=== PATIENT | male | born 1970 | race Caucasian/White ===

== ENCOUNTER 2023-12-14 14:03 | Inpatient (IN) | payer BC, SELFPAY ==
[2023-12-14] VITALS (15 sets, daily range): BP systolic 129–183; BP diastolic 75–110; BMI 32.2; BMI 32.4
--- NOTE | 2023-12-14 09:04 | ED.GENMED ---
History of Present Illness
General
Chief Complaint: Numbness
Source: patient
Exam Limitations: none
Time Seen by Provider: 12/14/23 08:56
Nursing documentation reviewed up to this point in time: agreed with
Travel History
Have you had any contact with someone who has COVID-19?: No
Do you have any symptoms of coronavirus? Fever > 100 degrees, chills, cough, shortness of breath, sore throat, loss of taste or smell, muscle aches, or headache?: No
History of Present Illness
History of Present Illness:
Patient is a 53-year-old male with past medical history of hypertension high cholesterol presents to the ER for numbness. Patient has had numbness from his left shoulder down to his left middle fourth and fifth fingers for the past 4 days however
this morning woke up with numbness to his entire left side of his body left face left arm all of his left hand and left leg. He has no associated headache no associated weakness. He did take 2 regular strength aspirin prior to arrival. He was
initially seen by his family doctor for the numbness several days ago and it was only localized to his arm and left 3 fingers.
Review of Systems
Review of Systems
Allergies reviewed?: Yes
All Other Systems: ROS reviewed and negative except as documented in HPI and ROS
Constitutional: Reports no symptoms; Denies fever
EENT: Reports no symptoms
Respiratory: Reports no symptoms
Cardiac: Reports no symptoms
ABD/GI: Reports no symptoms; Denies nausea or vomiting
: Reports no symptoms
Musculoskeletal: Reports no symptoms
Skin: Reports no symptoms
Neurological: Reports numbness (numbness left side of body ); Denies headache
Psychiatric: Reports no symptoms
Phy Exam
General Physical Exam
General Presentation: no apparent distress
General age: appears stated age
General Skin: warm and dry
General Habitus: normal
General Mental: alert
General Hydration: appears well hydrated
Eye Exam
Eye Exam: PERRL and EOMI
Eye Exam General: PERRL: bilateral and EOM intact: bilateral
Pupil Exam: Bilateral: round and reactive
Cardiovascular Exam
Cardiovascular Exam: regular rate/rhythm, no murmur and normal peripheral pulses
Pulmonary Exam
Pulmonary Exam: lungs clear and no respiratory distress
Neurological Exam
Neurological Exam: alert, oriented x3, no motor deficits and other (Patient with decreased sensation to left face, arm/leg no deficit in strength )
Musculoskeletal Exam
Musculoskeletal Exam: full ROM
Skin Exam
Skin Exam: normal color and warm/dry
Psychiatric Exam
Psychiatric Exam: normal mood/affect
Scores
NIH Stroke Score
Level of Consciousness: 0 - Alert
LOC Questions: 0-Answers both correctly
LOC Commands: 0-Performs both correctly
Best Horizontal Gaze: 0-Normal
Visual Diana: 0=Normal, no visual loss
Facial Palsy: 0=Normal, symmetrical
Motor - Right Arm: 0=No drift 10 seconds
Motor - Left Arm: 0=No drift 10 seconds
Motor - Right Le-No drift 5 seconds
Motor - Left Le-No drift 5 seconds
Limb Ataxia: 0-Absent
Sensation: 1-Mild loss
Best Language: 0-No aphasia
Dysarthria: 0-Normal
Extinction and Inattention: 0-No abnormality
Total Score:: 1
Course
Orders/Labs/Results
Orders:
Orders
12/14/23 09:01
Electrocardiogram (*1) Urgent
Reason for Study: Vertigo / Dizzy
CT Head W/o Iv Contrast Urgent
Comment:
Reason For Exam: numbness/tingling
EKG- Treatment ONCE
12/14/23 09:37
Clopidogrel Bisulfate [Plavix] 300 mg PO NOW STA
12/14/23 09:45
Complete Blood Count/With Diff Urgent
Comprehensive Metabolic Panel Urgent
Glycohemoglobin (HgbA1c) Urgent
Troponin I Urgent
12/14/23 09:55
Neurological Checks As Directed
Frequency: Per unit guidelines
12/14/23 09:56
MA [place] Routine
Comment:
Reason For Exam: intracranial stenosis
Recent pill cam endoscopy?: No
MR Brain Without Contrast Routine
Comment:
Reason For Exam: L hemibody numbness, R BG/denis/thalamus stroke?
Recent pill cam endoscopy?: No
NIH Stroke Scale As Directed
Directions: Per protocol
Comment: Please until order to stop
12/14/23 10:00
Add On- LAB Urgent
Tests Added?: HbA1c
12/14/23 10:06
MA Neck With Contrast Routine
Reason For Exam: stenosis
Recent pill cam endoscopy?: No
12/14/23 18:00
Atorvastatin [Lipitor] 10 mg PO QPM
12/15/23 06:00
Cardiovascular Evaluation IN AM
12/15/23 08:00
Aspirin Low Dose EC [Aspir Low (Enteric Coated)] 81 mg PO DAILY
Clopidogrel Bisulfate [Plavix] 75 mg PO DAILY
12/16/23 10:01
Echo W Saline (bubble) Dop Routine
Reason for Study: thrombotic source for stroke like
Comment: Bubble study please-patient younger than 60 TIA/stroke
Abnormal Lab Results
12/14/23
09:45
Glucose 100 H mg/dl
(70-99)
ALT 79 H U/L
(0-50)
12/14/23 09:45
12/14/23 09:45
Vital Signs
Initial and Last Documented VS:
Initial Vital Signs
Temp Pulse Resp BP Pulse Ox
98.0 F 83 20 183/108 99
12/14/23 08:48 12/14/23 08:48 12/14/23 08:48 12/14/23 08:48 12/14/23 08:48
Last Documented Vital Signs
Temp Pulse Resp BP Pulse Ox
97.6 F 83 16 158/97 98
12/14/23 10:03 12/14/23 10:03 12/14/23 10:03 12/14/23 10:03 12/14/23 10:03
MDM/Problems Addressed
Differential Diagnosis Includes:
Not limited to paresthesias, CVA
MDM/Problems Addressed:
Patient is a 53-year-old male with history of hypertension high cholesterol who had intermittent numbness to his left arm for the past 4 days however woke up today with entire left-sided facial numbness. He denies any associate weakness headache.
On exam he does have subjective numbness to his left face arm and leg. He has no deficit in strength. He took 2 regular aspirin prior to arrival. CAT scan negative. Case discussed with neurology Dr. Matias as recommended patient was given plan.
Patient mated to hospital service. Patient is agreeable to stay however he expressed initially that he has a lot of anxiety about being hospitalized and initially did not want to stay. He is agreeable to admission I did review risks of discharge.
Chronic conditions affecting care:
htn high cholesterol
*Radiology
Radiology exam reviewed: radiology read reviewed
*Pulse Oximetry
Patient hypoxic: no
*EKG
Interpreted by ED Provider?: Yes
Interpretation: normal
Heart Rate: 89
Rate: normal
Rhythm: sinus
Ischemia: no ischemia
*Critical Care Note
Total Time (30-74mins, 75-104mins- exclusive of procedures): Not Applicable
Patient Management
Discussion with other providers: Registered Nurse [facility] (Neuro Dr Matias)
ED Attending Note
-
Portions of this chart may have been created with voice recognition software.� Occasional wrong word or��sound alike� substitutions may have occurred due to the inherent limitations of voice recognition software.
Discharge Plan
Departure
Patient Disposition: Admit
Date of Disposition: 12/14/23
Time of Disposition: 10:37
Admit to: Med/Surg
Admit to doctor: hospitalist
Presentation/result/management discussed w/ accepting MD/DO: Hospitalist
Patient with high blood pressure during this ER visit?: Yes
Condition: Fair
Covid-19: Not Applicable
Discharge Problem:
parethesias
Prescriptions:
No Action
atorvastatin 10 mg Tablet
10 mg PO DAILY
lisinopril 10 mg Tablet
10 mg PO DAILY
Referrals:
Manju Marie DO [Family Provider] -
Interventions
Interventions:
*Risk Screen - Suicide Last Done: 12/14/23 08:48
*General Assessment Last Done: 12/14/23 08:48
*Neglect/Abuse Screening Last Done: 12/14/23 08:48
ED- Fall Risk Assessment Last Done: 12/14/23 09:03
*ED COVID-19 Vaccine History Last Done: 12/14/23 09:03
ED- Neurological Assessment Last Done: 12/14/23 09:03
Discharge Date and Time
Print Language: MARSHALLESE
[2023-12-14] MEDS: PLAVIX 300 MG PO (09:51)
[2023-12-14 09:55] LABS: % Basophils 0.9 % (0-2); % Eosinophils 2.3 % (0-6); % Immature Granulocytes 0.4 % (0-0.5); % Lymphocytes 33.9 % (20.5-51.1); % Monocytes 8.4 % (1.7-9.3); % Neutrophils 54.1 % (42.2-75.2); Absolute Basophils 0.1 10^3/uL (0-0.2); Absolute Eosinophils 0.2 10^3/uL (0-0.7); Absolute Lymphocytes 2.3 10^3/uL (1.2-3.4); Absolute Monocytes 0.6 10^3/uL (0.1-0.6); Absolute Neutrophils 3.7 10^3/uL (1.4-6.5); Hematocrit 43.4 % (39.0-52.0); Hemoglobin 15.2 g/dL (13.0-18.0); Mean Corpuscular Hgb 30.6 pg (27.0-31.0); Mean Corpuscular Volume 87.3 fL (80.0-94.0); Mean Platelet Volume 9.6 fL (7.4-10.4); Nucleated Red Blood Cells % 0 % (-); Platelet Count 258 10^3/uL (130-400); Red Blood Cell Count 4.97 10^6/uL (4.70-6.10); Red Cell Dist. Width 12.5 % (11.5-14.5); White Blood Cell Count 6.8 10^3/uL (4.8-10.8)
--- NOTE | 2023-12-14 09:57 | CON.NEURO4 ---
Consultation - Neurology 4
-
CONSULTING PHYSICIAN: Alexys Matias
REFERRING PHYSICIAN: ED
DICTATED BY: Alexys Matias
DATE/TIME OF REQUEST: 12/14/23
DATE/TIME OF CONSULTATION: 12/14/23
Reason for Consultation: Left hemibody numbness concerning for potential new ischemic stroke or TIA
History of Present Illness:
Patient is a 53-year-old right-handed man with a past medical history of hypertension and hyperlipidemia presented to hospital because of left-sided face arm and leg paresthesia that started this morning. Around 4 days ago patient did notice some
paresthesias in the left hand and fingers that send improved spontaneously. No symptoms of radiating pain from the neck or shoulder recently and no recent head or neck trauma or known spinal issues of the neck. No unusual headaches. This morning
noticed a new symptom with left-sided facial paresthesia that seems to be improving mostly resolving, and had paresthesia of the left leg as well. He did not notice any weakness or incoordination vision change speech difficulty, or vertigo. He
took a couple of aspirin at home and presented here to the ED. Has never had symptoms like this before. Is compliant with medications with atorvastatin and lisinopril at home.
Past Medical History: Hypertension, hyperlipidemia, obesity
Surgical History: Right hip replacement, epidural steroid injections of lumbar and sacral spine
Family History: Father with VT around age 50, 2 grandparents maternal grandfather with heart disease one dying around age 60
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
Allergies: Sulfa
Review of Symptoms:
Patient denies any fever, headache, chest pain, shortness of breath, GI or symptoms.
Physical Exam:
Middle-age man well-appearing no signs of acute distress no signs of head or neck trauma eyes are clear oropharynx is clear neck supple full range of motion no neck masses heart rate regular with no murmur breathing is unlabored abdomen soft
nontender no lower extremity or joint deformity or rash
Neurologic Examination:
The patient is awake, alert and oriented x 3. He is able to follow commands and answer questions appropriately. There is no aphasia or dysarthria. On cranial nerve assessment, pupils are 3 mm bilateral, round and reactive to light and
accommodation. Visual smith are full. Extraocular movements are intact. There is no facial asymmetry. Hearing is intact bilaterally to normal conversation volume. Tongue palate and uvula are midline. Sternocleidomastoid strengths are full
bilaterally. Motor strengths are 5/5 bilateral upper and lower extremities on medical research [place] scale. There is no drift or involuntary movement noted. Mildly asymmetric sensory exam with difference in sensation on left arm, none on the face
or leg, no sensory neglect. Deep tendon reflexes are 2+ bilateral upper and lower extremities and Babinski is absent bilaterally. There was no extinction noted on double simultaneous stimulation. Coordination is intact by finger to nose
bilaterally.
Neuro Imaging: CT head non contrast unremarkable
Impressions
1. Suspect TIA or minor stroke presenting with left sided hemibody sensory symptoms given family history of risk factors for stroke/TIA. Less likely a cervical spine issue which only very rarely produces sensory symptoms to face.
2. Hypertension
3. Hyperlipidemia
4. Obesity
5. Family history of early CAD
Patient has the following risk factors for their symptoms: Hypertension, hyperlipidemia
IV Tenecteplase/IAT candidacy: Outside time window and no disabling symptoms not TNK candidate, no signs of LVO not an IAT candidate
Recommendations:
1. Aspirin already taken at home, give 300 mg Clopidogrel now. DAPT therapy duration will depend on MRA vessel imaging, likely will be 21 days then stop
2. Permissive hypertension goal less than 220/120 until tomorrow morning
3. NIH and neurologic checks
4. Cardiac telemetry and check TTE with bubble study (patient prefers to pursue TTE as outpatient)
5. MRI brain, MRA head and neck
6. Check lipid panel, HbA1c
7. Continue Atorvastatin 10 mg daily
8. PT/OT
Discussed patient care with: Patient, ED
--- NOTE | 2023-12-14 10:08 | EDRN ---
Janee Mcknight AUXILIARY EQUIPMENT TENDER currently at the pts bedside speaking to the pt about being admitted, the pt states that he has anxiety about being admitted to the hospital, provider at the pts bedside reassuring the pt along with this RN
[2023-12-14 10:22] LABS: ALT (SGPT) 79 U/L (0-50); AST (SGOT) 40 U/L (17-59); Albumin 4.9 g/dl (3.5-5.0); Alkaline Phosphatase 62 U/L (38-126); Blood Urea Nitrogen 18 mg/dl (9-20); Calcium 10.2 mg/dl (8.4-10.2); Carbon Dioxide 25 mmol/L (22-30); Chloride 105 mmol/L (98-107); Estimated Creatinine Clearance > 125 ml/min; Glucose 100 mg/dl (70-99); Potassium 4.6 mmol/L (3.5-5.1); Sodium 137 mmol/L (135-145); Total Bilirubin 0.5 mg/dl (0.2-1.3); Total Protein 7.5 g/dl (6.3-8.2); eGFR > 60.00
[2023-12-14 10:33] LABS: Troponin I 0.033 ng/ml
--- NOTE | 2023-12-14 10:35 | EDRN ---
Troponin came back elevated, this RN notified the provider Janee Mcknight NP
--- NOTE | 2023-12-14 10:53 | EDRN ---
the pt pressed the all riley and this RN entered the pts room, the pt stated that he needed to use the bathroom, this RN unhooked the pt from the monitor and the pt was able to ambulate to the bathroom and back to the stretcher with no issues, the pt
is resting in stretcher in the lowest position, side rails up x2, call riley within reach, HOB elevated, VS WNL, will continue to monitor the pt closely
--- NOTE | 2023-12-14 12:11 | EDRN ---
awaiting for provider to see the pt, the pt is resting in stretcher in the lowest position, side rails up x2, call riley within reach, HOB elevated, VS WNL, NSR in the 70's, no c/o chest pain, no c/o SOB, RA Sp02 96%, last BP 126/85 (98), will
continue to monitor the pt closely
[2023-12-14 12:39] LABS: Glycohemoglobin (HgbA1c) 5.4 % (4.0-5.6)
--- NOTE | 2023-12-14 12:45 | EDRN ---
pt taken to MRI
--- NOTE | 2023-12-14 14:19 | HPS.HSE ---
Family Physician
-
Family Physician: Manju Marie DO
Chief Complaint
-
Left sided numbness
History of Present Illness
53-year-old male with past medical history of hyperlipidemia, hypertension now presenting for left-sided face, arm, leg paresthesia/numbness. Symptoms began this morning and subsequently took a 2 regular strength aspirin tablets,, although had
similar mild symptoms 4 days ago that improved spontaneously. No evidence of motor deficits. No neck, head, back, shoulder issues. Denies headaches. Upon evaluation, symptoms slowly improving. Blood pressure 146/90, pulse 77, respirate 16,
afebrile. Labs grossly unremarkable.
Medical History
Past Medical History
Past Medical History: Reports Other
Additional Past Medical History:
Hypertension, hyperlipidemia, obesity
Past Surgical History: Reports Other
Additional Past Surgical History:
Right hip replacement, epidural steroid injections of lumbar and sacral spine
Social History
Tobacco: Non-smoker
Alcohol: Occasional (every other day, 1 drink)
Drug: Marijuana (has not used in 6-8 months)
Personal:
Living: With Family
Employment: Employed
Family History
Family History: Other (Father with [place] around age 50, 2 grandparents maternal grandfather with heart disease one dying around age 60)
Allergies / Home Medications
Allergies reflects when Allergies were last updated in [email or web address].
Home Medications with original date entered in [email or web address]
Allergy/Medication List:
Allergies
Allergy/AdvReac Type Severity Reaction Status Date / Time
Sulfa (Sulfonamide Allergy Rash Verified 12/14/23 08:52
Antibiotics)
Home Medications
atorvastatin 10 mg tablet 10 mg PO DAILY 12/14/23
lisinopril 10 mg tablet 10 mg PO DAILY 12/14/23
Review of Systems
-
History Source: Patient
A 12 point ROS was completed and negative except as noted: Yes
Physical Exam
Vital Signs
Vital Signs
Temp Pulse Resp BP Pulse Ox
97.5 F 77 16 146/90 98
12/14/23 12:00 12/14/23 12:30 12/14/23 12:30 12/14/23 12:09 12/14/23 12:30
Physical Exam
General: Well Developed, Well Nourished and No Apparent Distress
HEENT: NormoCephalic
Respiratory: Clear
Cardiac: S1/S2 and Regular Rhythm
GI: Non Tender
Musculoskeletal: No Clubbing
Skin: Warm and Dry
Neuro: Awake, Alert, Oriented and AO x 3
Hematologic/Lymphatic: No Lymphadenopathy
Laboratory Results
-
12/14/23 09:45
12/14/23 09:45
Laboratory Results
Total Bilirubin 0.5 mg/dl (0.2-1.3) 12/14/23 09:45
AST 40 U/L (17-59) 12/14/23 09:45
ALT 79 U/L (0-50) H 12/14/23 09:45
Alkaline Phosphatase 62 U/L (38-126) 12/14/23 09:45
Troponin I 0.033 ng/ml 12/14/23 09:45
Data Reviewed
-
CT Scan: Image Personally Visualized and interpreted and Report Reviewed by me
Lab Data: Labs Reviewed by me
Impression/Plan
-
IMPRESSION:
53-year-old male with past medical history of hyperlipidemia, hypertension now presenting for left-sided face, arm, leg paresthesia/numbness, admitted due to concern for CVA.
PLAN:
#Suspect TIA versus CVA
� Out of tPA window
� Continue aspirin 81 mg
� Continue Plavix, likely for 21 days then stop
� Permissive hypertension, BP goal less than 220/120
� Continue NIH, neurology checks
� IV fluids
� Continue telemetry
� TTE with bubble study although patient prefers to pursue TTE as outpatient
� Follow-up MRI brain, MRA head and neck
� Follow lipid panel, hemoglobin A1c
� Continue statin
� PT/OT
#Hypertension
� Permissive hypertension
#Hyperlipidemia
� Continue statin
#DVT prophylaxis
� HSQ
--- NOTE | 2023-12-14 14:32 | EDRN ---
hospitalist currently at the pts bedside speaking with the pt
--- NOTE | 2023-12-14 15:56 | EDRN ---
this RN called the receiving unit and notified them that paper report was going to be tubed up
[2023-12-14] MEDS: LR 1000 IV (17:05)
[2023-12-14] MEDS: LIPITOR 10 MG PO (17:05)
[2023-12-14] MEDS: HEPARIN 5000 UNITS SC (17:06)
[2023-12-14] MEDS: DESYREL 12.5 MG PO (21:35)
[2023-12-14 21:53] LABS: Urine Albumin Negative (Neg - Trace); Urine Bilirubin Negative (Negative); Urine Character Clear (Clear); Urine Glucose Negative (Negative); Urine Ketone Negative (Negative); Urine Leukocyte Negative (Negative); Urine Nitrite Negative (Negative); Urine Occult Blood Trace (Negative); Urine Specific Gravity 1.015 (<1.030); Urine Urobilinogen Negative (Neg - 1+)
[2023-12-14 21:57] LABS: Urine Color Straw
[2023-12-14 21:59] LABS: Urine Squamous Cell 0-2 /LPF (Few)
[2023-12-14 22:00] LABS: Urine Red Blood Cell 0-2 /HPF (0-2); Urine White Cell 0-2 /HPF (0-5)
[2023-12-15] MEDS: HEPARIN 5000 UNITS SC ×2 (00:13→09:06)
[2023-12-15 03:10] VITALS: BP 134/77
[2023-12-15 07:08] LABS: ALT (SGPT) 75 U/L (0-50); AST (SGOT) 38 U/L (17-59); Albumin 4.4 g/dl (3.5-5.0); Alkaline Phosphatase 61 U/L (38-126); Blood Urea Nitrogen 14 mg/dl (9-20); Calcium 9.8 mg/dl (8.4-10.2); Carbon Dioxide 27 mmol/L (22-30); Chloride 103 mmol/L (98-107); Estimated Creatinine Clearance > 125 ml/min; Glucose 99 mg/dl (70-99); HDL Cholesterol 51 mg/dl; LDL Cholesterol, Calculated 73 mg/dl; Potassium 4.2 mmol/L (3.5-5.1); Sodium 135 mmol/L (135-145); Total Bilirubin 0.8 mg/dl (0.2-1.3); Total Cholesterol 205 mg/dl (50-199); Total Protein 7.1 g/dl (6.3-8.2); Triglyceride 409 mg/dl (10-149); Very Low Density Lipoprotein 81 mg/dl (0-30); eGFR > 60.00
[2023-12-15 07:11] LABS: Hematocrit 42.4 % (39.0-52.0); Hemoglobin 14.5 g/dL (13.0-18.0); Mean Corp Hgb Conc. 34.2 g/dL (33.0-37.0); Mean Corpuscular Hgb 30.7 pg (27.0-31.0); Mean Corpuscular Volume 89.8 fL (80.0-94.0); Mean Platelet Volume 9.6 fL (7.4-10.4); Platelet Count 265 10^3/uL (130-400); Red Blood Cell Count 4.72 10^6/uL (4.70-6.10); Red Cell Dist. Width 12.3 % (11.5-14.5); White Blood Cell Count 6.4 10^3/uL (4.8-10.8)
[2023-12-15 07:34] LABS: TSH 0.99 uIU/ml (0.47-4.68)
[2023-12-15 07:37] LABS: LDL Cholesterol, Direct 114 mg/dl
--- NOTE | 2023-12-15 08:35 | W.PN.NEURO.1 ---
Today's Communication / Plan
-
-Patient reports he thinks is on Atorvastatin 80 mg daily at home, would keep on this dose then
-Aspirin 81 mg daily for life
-DAPT plavix 21 days then off
-Acceptable for TTE with bubble study as outpatient
-Discussed secondary prevention, diet, exercise
-Neurology follow up 4-6 weeks outpatient, okay to see [employer]
-Goal normotension
-No barriers to discharge from my standpoint
Neuro Assessment/Plan
Assessment
53 year old man with history of hyperlipidemia, hypertension, obesity, family history of early CAD presenting to hospital with at first left hand paresthesia a few days ago, yesterday morning noted new symptoms of left face, left hand and leg
paresthesia concerning for sensory stroke or TIA
No head or neck trauma recently, no history C spine issues
MRI brain MRA head and neck showing no significant cerivcal or intracranial stenosis, no acute or chronic infarcts seen or signs of chronic demyelination
TIA is felt the most likely diagnosis given risk factors, unilateral face/arm/leg paresthesia, no infarct seen on brain MRI. Very rare for cervical spine issues to produce such symptoms and patient has no signs or symptoms suggestive of cervical
myelopathy. Migraine aura without headache would be in differential diagnosis but no history of migraine headaches.
MRI brain shows no signs of demyelination so unlikely multiple sclerosis
Subjective/Objective
Subjective Data
Date of Service: December 15, 2023
No acute events, small amount of left facial paresthesia mostly resolved, no arm or leg paresthesias
Objective Data
Vital Signs
Temp Pulse Resp BP Pulse Ox
97.4 F 72 18 134/77 96
12/15/23 03:10 12/15/23 03:10 12/15/23 03:10 12/15/23 03:10 12/15/23 03:10
Lab Results
12/15/23 06:29
12/15/23 06:29
Sodium 135 mmol/L (135-145) 12/15/23 06:29
Potassium 4.2 mmol/L (3.5-5.1) 12/15/23 06:29
BUN 14 mg/dl (9-20) 12/15/23 06:29
Glucose 99 mg/dl (70-99) 12/15/23 06:29
Calcium 9.8 mg/dl (8.4-10.2) 12/15/23 06:29
LDL Cholesterol Direct 114 mg/dl 12/15/23 06:29
LDL Cholesterol, Calc 73 mg/dl 12/15/23 06:29
Patient Allergies
Sulfa (Sulfonamide Antibiotics) Allergy (Verified 12/14/23 08:52)
Rash
LDL Level: >70, statin ordered
Review of Systems
-
History Source: Patient
All other systems: Reviewed and negative
Constitutional: No Symptoms
EENT: No Symptoms Reported
Respiratory: No Symptoms
Cardiac: No Symptoms
Abdomen/GI: No Symptoms
Genitourinary: No Symptoms
Musculoskeletal: No Symptoms
Skin: No Symptoms
Neuro: Numbness
Endocrine: No Symptoms
Hematologic / Lymphatic: No Symptoms
Allergy / Immunology: No Symptoms
Physical Exam
-
General: Comfortable
Eyes: No Ptosis
HEENT: Normocephalic
Neck: No Bruits Bilaterally
Respiratory: Clear to Auscultation
Cardiac: Regular Rhythm
GI: Normal Bowel Sounds
Skin: Unremarkable
Extremities: No Clubbing
Psych: Unremarkable
Extended Neurological Exam
Mood & Affect: Mood Unremarkable and Affect Unremarkable
Attention Span & Concentration: Awake, Alert and Interactive
Memory: Unremarkable
Tremor: Hand Tremor Absent
Involuntary Movement: None
Speech: Quality Unremarkable and Quantity Unremarkable; Negative Expressive Aphasia or Receptive Aphasia
Cranial Nerve II: Left Eye: Pupillary Reactivity Unremarkable, Pupillary Size Unremarkable and Visual Diana Intact
Cranial Nerve II: Right Eye: Pupillary Reactivity Unremarkable, Pupillary Size Unremarkable and Visual Diana Intact
Cranial Nerves III, IV, : Extraocular Movement: Extraocular Movement Full in all Directions
Cranial Nerve VII: Facial Symmetry: Normal Facial Symmetry
Muscle Strength, Overall: Full Throughout
Pronator Drift: No Drift in Upper Extremities
Deep Tendon Reflexes: Trace Throughout
Touch Sensation: Unremarkable
Babinski Sign: Absent Bilaterally
Data Reviewed
-
CT Head: Report Reviewed and Image Reviewed
MRI Head: Report Reviewed and Image Reviewed
MRA Head: Report Reviewed and Image Reviewed
MRA Neck: Report Reviewed and Image Reviewed
Labs: Report Reviewed
Lipid Profile: Report Reviewed
[2023-12-15 08:45] VITALS: BP 163/99
[2023-12-15] MEDS: PLAVIX 75 MG PO (09:06)
[2023-12-15] MEDS: ASPIR LOW (ENTERIC COATED) 81 MG PO (09:06)
[2023-12-15 09:40] VITALS: BP 163/99; PULSE 90
[2023-12-15 09:43] VITALS: BP 163/99; PULSE 90
--- NOTE | 2023-12-15 10:09 | W.PN.HOSP.TC ---
Addendum entered and electronically signed by Fernando Everett MD 12/15/23 14:57:
[id number]
Original Note:
Today's Communication/Plan
-
asa, plavix (for 21 days)
statin
diet modification
TTE with bubble as outpatient
neuro f/u 4-6 weeks
Assessment / Plan
Assessment / Plan
Physical Exam
General: Well Developed, Well Nourished and No Apparent Distress
HEENT: NormoCephalic
Respiratory: Clear
Cardiac: S1/S2 and Regular Rhythm
GI: Non Tender
Musculoskeletal: No Clubbing
Skin: Warm and Dry
Neuro: Awake, Alert, Oriented and AO x 3
Hematologic/Lymphatic: No Lymphadenopathy
53-year-old male with past medical history of hyperlipidemia, hypertension now presenting for left-sided face, arm, leg paresthesia/numbness, admitted due to concern for CVA.
PLAN:
#TIA
- MRI without any acute findings
- Statin - patient believes is on 80mg - can cont that then
- Aspirin 81 mg daily for life
- DAPT plavix 21 days then off
-desires TTE with bubble study as outpatient - neuro OK to this
-Discussed secondary prevention
-Neurology follow up 4-6 weeks outpatient
-Goal normotension
#Hypertension
� goal normotension
-resume ACEI
-f/u pcp outpatient
#Hyperlipidemia
� Continue statin
#DVT prophylaxis
� HSQ
More than 30 minutes spent in discharge including
Final examination of the patient
Summarizing hospital stay
Instructions for continuing care to all relevant caregivers
Preparation of discharge records, prescriptions, and referral forms
Total time spent (35 in minutes):
Anticipated Discharge: Today
Subjective/Interval History
-
Date of Service: December 15, 2023
no acute events
Objective Data
-
Labs:
Laboratory Results
12/15/23
06:29
WBC 6.4
Hgb 14.5
Hct 42.4
Plt Count 265
Sodium 135
Potassium 4.2
Chloride 103
Carbon Dioxide 27
BUN 14
Creatinine 0.7
Glucose 99
Calcium 9.8
Total Bilirubin 0.8
AST 38
ALT 75 H
Alkaline Phosphatase 61
Vital Signs:
Vital Signs
Temp Pulse Resp BP Pulse Ox
97.4 F 72 18 134/77 96
12/15/23 03:10 12/15/23 03:10 12/15/23 03:10 12/15/23 03:10 12/15/23 03:10
I&O
12/14/23 12/15/23 12/16/23
06:59 06:59 06:59
Intake Total 315 / 315
Balance 315 / 315
Review of Systems
-
History Source: Patient
All other systems: Not reviewed unless documented
Data Reviewed
-
CT Scan: Image personally visualized and interpreted and Report Reviewed by me
MRI: Image personally visualized and interpreted and Report Reviewed by me
Labs: Labs Reviewed by me
--- NOTE | 2023-12-15 10:15 | CM ---
Patient seen bedside.
IA completed.
Patient lives with spouse in 2 story home, 0 steps to enter.
patient independent prior to admission without AD.
patient works and drives.
patient has not had VN in the past.
patient denies home care needs.
PCP: Dr Marie
Pharmacy: [facility].
Plan: home no needs.
--- NOTE | 2023-12-15 10:15 | W.DS.TRANS ---
DC Summary - [employer]
-
Discharge Instructions:
Discharge Diagnosis/Procedures tia
Diet Low Cholesterol,Low Fat
Activity As tolerated
Instructions:
Stand-Alone Forms:
Changes to Home Medications: Yes
Discharge Medications:
DC Medications w/original date entered in [facility]
lisinopril 10 mg tablet 10 mg PO DAILY 12/14/23
aspirin 81 mg tablet,delayed release 81 mg PO DAILY 30 days #30 tabs 12/15/23
atorvastatin 80 mg tablet 80 mg PO QPM #30 tabs 12/15/23
clopidogrel 75 mg tablet 75 mg PO DAILY 21 days #21 tabs 12/15/23
Home Medication Changes
aspirin 81 mg tablet,delayed release 81 mg PO DAILY 30 days #30 tabs 12/15/23
clopidogrel 75 mg tablet 75 mg PO DAILY 21 days #21 tabs 12/15/23
Pending Results: Yes
== END 2023-12-15 11:42 | disposition home or self-care (01) | DRG 69 ==
LOC: 4 WEST ACU 14:03
PROVIDERS: Nurse Practitioner; ADMITTING PHYSICIAN Internal Medicine; EMERGENCY PHYSICIAN Emergency Medicine; FAMILY PHYSICIAN Family Medicine; OTHER PHYSICIAN Student in an Organized Health Care Education/Training Program
DX: G45.9 Transient cerebral ischemic attack, unspecified (principal); I10 Essential (primary) hypertension; E78.00 Pure hypercholesterolemia, unspecified; Z79.82 Long term (current) use of aspirin
CPT/HCPCS: 70450; 70544; 70548; 70551; 80053; 80061; 81003; 81015; 83036; 83721; 84443; 84484; 85025; 85027; 93005; 97161; 97165; 99285; A9585

== ENCOUNTER → 2023-12-25 13:47 | Outpatient (REF) | payer BC, SELFPAY ==
--- NOTE | 2023-12-25 14:59 | PTCARENOTE ---
Pt here for Bubble / Echo Study. Right antecubital 22 G PC inserted first attempt, site clear, no redness, no edema. Procedure completed per protocol with aseptic technique. Pt tolerated procedure well, denies SOB, denies dizziness. [facility]
at 1458, site clear. Pressure held for few minutes as pt on anticogulants. No change in status, offers no complaints.
== END ==
LOC: RCS 13:47
PROVIDERS: ATTENDING PHYSICIAN Family Medicine
DX: Z86.73 Personal history of transient ischemic attack (TIA), and cerebral infarction without residual deficits (principal)
CPT/HCPCS: 93307

== ENCOUNTER 2024-03-04 06:26 | Day surgery (SDC) | payer BC, SELFPAY ==
[2024-03-04] VITALS (10 sets, daily range): BP systolic 120–152; BP diastolic 68–92; BMI 31.9
[2024-03-04] MEDS: TYLENOL 1000 MG PO (08:34)
[2024-03-04] MEDS: NORMOSOL-R 1000 IV (08:34)
== END 2024-03-04 15:10 | disposition home or self-care (01) ==
LOC: SDS 06:26
PROVIDERS: ATTENDING PHYSICIAN Surgery
DX: L05.91 Pilonidal cyst without abscess (principal); L98.8 Other specified disorders of the skin and subcutaneous tissue
CPT/HCPCS: 11770; 14301; 88304

== ENCOUNTER → 2024-03-17 16:16 | Outpatient (REF) | payer BC, SELFPAY | LOC: PAVMRI 16:16 | PROVIDERS: ATTENDING PHYSICIAN Physical Medicine & Rehabilitation; FAMILY PHYSICIAN Family Medicine | DX: M54.16 Radiculopathy, lumbar region (principal); M54.12 Radiculopathy, cervical region | CPT/HCPCS: 72141; 72148 ==